=== PATIENT | male | born 1960 | race Caucasian/White ===

== ENCOUNTER 2017-04-09 06:50 | Day surgery (SDC) | payer BC ==
[~2017-04-09] VITALS: Ht 180.3 cm; Wt 204.6 kg
[~2017-04-09 06:50] MED LIST: ALEVE220 MG PO; AMLODIPINE BESY10 MG PO; GLUCOPHAGE500 MG PO; VITAMIN D34000 UNIT PO
[2017-04-09] MEDS ORDERED: NAPROXEN500 MG PO (08:21)
[2017-04-09] MEDS ORDERED: HYDROCODON-ACE1 EA11 PO (08:22)
--- NOTE | 2017-04-09 08:28 | NUR ---
04/09/17 0828 Eh Orta ORIENTED TO TIME AND SITUATION ON ENTRY TO PACU. DENIES NAUSEA. REPORTS 5/10 RIGHT KNEE PAIN. REFUSES OFFER OF PRN MEDICAION FOR PAIN AT THIS POINT.
--- NOTE | 2017-04-09 09:35 | NUR ---
VANE 0925: PT IS UP OOB WITH STANDBY ASSIST TO THE BATHROOM. PT STATES THAT HE REALLY NEEDS TO URINATE, BUT IS ONLY ABLE TO VOID APPROXIMATELY 25ML. PT IS RECONNECTED TO IV FLUIDS AND GIVEN A REFILL OF WATER.
[2017-04-09] MEDS ORDERED: NORCO 7.5-3251 EACH PO (09:44)
--- NOTE | 2017-04-09 10:22 | NUR ---
1015 HAS AMB IN [facility] KNEE FEELS BETTER THAN BEFORE SURGERY. VOIDS 700MLS. HAS TAKEN PO WELL, CRACKERS JELLO WATER 300ML TEA 200
--- NOTE | 2017-04-09 10:58 | OR ---
[facility] [address], [place] [address] Signed DATE OF OPERATION: 04/09/2017 SURGEON: Tariq Ross MD PREOPERATIVE DIAGNOSIS: Medial meniscus tear, right knee. POSTOPERATIVE DIAGNOSIS: Medial meniscus tear, right knee. PROCEDURE PERFORMED: Right knee arthroscopy with partial medial meniscectomy. ANESTHESIA: General. SURGEON: Tariq Ross MD ASSISTANTS: 1. Janeen Ling PA-C. 2. RASHEEDA Combs. Janeen was present for the entire procedure, was critical for positioning, retraction and wound closure. BLOOD LOSS: 50 mL. BRIEF HISTORY: Adalgisa is a 57-year-old gentleman, who is toxically obese. He has a medial meniscus tear with locking and pain in his knee. The risks, benefits and alternatives were discussed with him. He elected to proceed. We elected to do it to the hospital secondary to airway concerns and bed capacity. Risks, benefits, and alternatives were discussed at length. Once consent was obtained, he was taken to the operating room. After par conference placed on operating room table, all downside pressure points well-padded. Left leg was flexed, abducted, and externally rotated, we will put a leg dawkins. Right leg was placed in well-padded proximal, thigh tourniquet placed on ankle portal sites. The knee was then prepped and draped in standard sterile fashion. Portal sites were then injected with 0.25% Marcaine with epinephrine. A standard inferior lateral and superior lateral portals were made and the scope was introduced in the knee arthroscopic findings. Electronically Signed By: TARIQ ROSS MD 04/09/17 1058 PATIENT NAME: ADALGISA ROSE OPERATIVE REPORT DATE OF : 56 PHYSICIAN: TARIQ ROSS MD REPORT #: [id number] REPORT IS CONFIDENTIAL AND NOT TO BE RELEASED WITHOUT AUTHORIZATION 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 Medial and lateral gutters showed extensive osteophyte formation. No loose bodies were noted. ACL and PCL were intact. Medial compartment showed areas of grade 4 chondromalacia to the tibia and grade 3 to the femur. A complex degenerative tear posteriorly. The lateral compartment was essentially intact. DESCRIPTION OF OPERATION: Standard inferomedial portal was made after localization using a spinal needle. The straight and curved biters were then used to trim the meniscus tear back to a stable rim. This was moved then fed using the shaver. All debris was evacuated. The scope was withdrawn. Prior to withdrawing, we did debride several chondral lesions on the femur. The scope was withdrawn. Portals were closed with 3-0 nylon and dressed with Adaptic ABD and Ej wrap. He tolerated the procedure well. All sponge, needle, and instrument counts were correct. Tariq Ross MD BA/TYRESEL /[id number] cc: Elana Torres PA-C Electronically Signed By: TARIQ ROSS MD 04/09/17 1058 PATIENT NAME: ADALGISA ROSE OPERATIVE REPORT DATE OF : 56 PHYSICIAN: TARIQ ROSS MD REPORT #: [id number] REPORT IS CONFIDENTIAL AND NOT TO BE RELEASED WITHOUT AUTHORIZATION
--- NOTE | 2017-04-09 14:16 | NUR ---
VISITED WITH PT'S CHRISTINA. SHE MENTIONED THAT PT WAS IN RECOVERY, AND SEEMED COMFORTABLE WITH HOW THE SURGERY WENT. SHE IS FAMILIAR WITH [facility], HAD NO REQUESTS. WILL FOLLOW NEEDED
== END 2017-04-09 10:15 | disposition home or self-care (01) ==
LOC: DS 06:50 → OPS 06:50 → DS 11:15
PROVIDERS: Specialist
PROC: 0SBC4ZZ Excision of Right Knee Joint, Percutaneous Endoscopic Approach (ICD-10-PCS; principal; 2017-04-09 09:00)
DX: S83.231A Complex tear of medial meniscus, current injury, right knee, initial encounter (principal); M17.0 Bilateral primary osteoarthritis of knee; M94.211 Chondromalacia, right shoulder; I10 Essential (primary) hypertension; E11.9 Type 2 diabetes mellitus without complications; G47.33 Obstructive sleep apnea (adult) (pediatric); E66.9 Obesity, unspecified; Z88.0 Allergy status to penicillin; Z88.1 Allergy status to other antibiotic agents; Z88.8 Allergy status to other drugs, medicaments and biological substances; Z68.44 Body mass index [BMI] 60.0-69.9, adult; Z79.899 Other long term (current) drug therapy
CPT/HCPCS: 01400; 90674; J0330; J1100; J1885; J2250; J2405; J2704; J2765; J3010; J3490; J7120

== ENCOUNTER 2017-12-15 11:23 | Emergency (ER) | payer BC ==
[~2017-12-15] VITALS: Ht 180.3 cm; Wt 204.6 kg
--- OUTSIDE RECORDS SUMMARY | ~2017-12-15 | XMS | Clinical Summary ---
Demographics + + + | Address | [address] | | | [place] [address] | + + + | Home Phone | | + + + | Preferred Language | Unknown | + + + | Marital Status | | + + + | Baptism Affiliation | Unknown | + + + | Race | Unknown | + + + | Ethnic Group | Unknown | + + + Author + + + | Author | [facility] | | | and [place] | + + + | Organization | [facility] | | | and [place] | + + + | Address | Unknown | + + + | Phone | Unavailable | + + + Support + + +---------+ + | Name | Relationship | Address | Phone | + + +---------+ + | CHRISTINA VALLECILLO | ECON | Unknown | | + + +---------+ + Care Team Providers + +------+ + | Care Abalone Diver Name | Role | Phone | + +------+ + PP | Unavailable | + +------+ + Allergies Not on File Current Medications Not on file Active Problems Not on file Social History + +-------+ +--------+------+ | Tobacco Use | Types | Packs/Day | Years | Date | | | | | Used | | + +-------+ +--------+------+ | Never Assessed | | | | | + +-------+ +--------+------+ + + + | Sex Assigned at | Date Recorded | | | | + + + | Not on file | | + + + Plan of Treatment + + + + + | Health Maintenance | Due Date | Last Done | Comments | + + + + + | Vaccine: | | | | | Dtap/Tdap/Td (1 - | 7 | | | | Tdap) | | | | + + + + + | Vaccine: Influenza | | | | | (#1) | 8 | | | + + + + + Results Not on filefrom Last 3 Months"
--- OUTSIDE RECORDS SUMMARY | ~2017-12-15 | XMS | Clinical Summary ---
Demographics + + + | Address | [address] | | | [place] [address] | + + + | Home Phone | | + + + | Preferred Language | Unknown | + + + | Marital Status | | + + + | Holiness Affiliation | CAT | + + + | Race | White | + + + | Ethnic Group | Not or | + + + Author + + + | Organization | Unknown | + + + | Address | Unknown | + + + | Phone | Unavailable | + + + Support + + + + + | Name | Relationship | Address | Phone | + + + + + | CHRISTINA ROSE | ECON | [address] | | | | | [place] | | | | | [address] | | + + + + + Care Team Providers + +------+ + | Care Dot Compliance Manager Name | Role | Phone | + +------+ + PP | Unavailable | + +------+ + Source Comments MARTHA is fully live on both [facility] and [facility] Allergies + + + + + + | Active Allergy | Reactions | Severity | Noted | Comments | | | | | Date | | + + + + + + | Penicillins | | | 12/20/18 | | | | | | 93 | | + + + + + + | Procaine | | | 12/20/18 | | | | | | 93 | | + + + + + + Current Medications Not on file Active Problems [...] | + + + + + | INFLUENZA VACCINE | | | | | (FLU SHOT) | 8 | | | + + + + + Results Not on filefrom Last 3 Months"
--- OUTSIDE RECORDS SUMMARY | ~2017-12-15 | XMS | Clinical Summary ---
Demographics + + + | Address | [address] | | | [place] [address] | + + + | Home Phone | | + + + | Preferred Language | Unknown | + + + | Marital Status | | + + + | Restorationism Affiliation | Unknown | + + + | Race | Unknown | + + + | Ethnic Group | Unknown | + + + Author + + + | Author | [facility] | | | and [place] | + + + | Organization | [facility] | | | [...] Team Providers + +------+ + | Care Home Coordinator Name | Role | Phone | + [...]
--- OUTSIDE RECORDS SUMMARY | ~2017-12-15 | XMS | Clinical Summary ---
Demographics + + + | Address | [address] | | | [place] [address] | + + + | Home Phone | | + + + | Preferred Language | Unknown | + + + | Marital Status | | + + + | Bahai Affiliation | CAT | + + + [...] [place] | | | | | [address] | | + + + + + Care Team Providers + +------+ + | Care Blower Feeder Dyed Raw Stock Name | Role | Phone | + +------+ + PP | Unavailable | + +------+ + Source Comments MARTHA is fully live on both [facility] and [facility] Allergies + + + + + [...]
[~2017-12-15 11:23] MED LIST changes: +HYDROCODON-ACE1 EA11 PO; +NAPROXEN500 MG PO; +NORCO 7.5-3251 EACH PO
[2017-12-15] MEDS ORDERED: CYCLOBENZAPRINE10 MG PO (11:35)
[2017-12-15] MEDS ORDERED: KETOROLAC TROME10 MG PO (11:35)
[2017-12-15] MEDS ORDERED: NORCO 7.5-3251 EACH PO (11:52)
== END 2017-12-15 11:58 | disposition home or self-care (01) ==
LOC: ED 11:23
DX: S29.012A Strain of muscle and tendon of back wall of thorax, initial encounter (principal); M54.12 Radiculopathy, cervical region; I10 Essential (primary) hypertension; R73.03 Prediabetes; Z88.1 Allergy status to other antibiotic agents; Z88.8 Allergy status to other drugs, medicaments and biological substances; Z88.0 Allergy status to penicillin; Z79.84 Long term (current) use of oral hypoglycemic drugs; Z79.899 Other long term (current) drug therapy; X50.9XXA Other and unspecified overexertion or strenuous movements or postures, initial encounter
CPT/HCPCS: 99282